=== PATIENT | female | born 1955 | race Two or more races ===

== ENCOUNTER 2018-06-03 08:46 | Inpatient (IN) | payer MEDICAID ==
[~2018-06-03] VITALS: Ht 160 cm; Wt 91.2 kg
--- NOTE | 2018-06-03 08:49 | NUR ---
SVETLANA WELSHS DT UNWITNESSED FALL. PER REPORT PATIENT WAS FOUND ON THE FLOOR. PATIENT IS AWAKE, APPEARS NOT IN DISTRESS. PATIENT NOTED WITH LEFT ELBOW ABRASION. SKIN IS WARM TO TOUCH AND NON DIAPHORETIC. PATIENT IS AFEBRILE.VSS
--- NOTE | 2018-06-03 08:56 | NUR ---
PATIENT IS AAO3.FARCI SPEAKING.
[2018-06-03 09:43] LABS: BASOPHILS # (AUTO) 0.3 /CMM (0.0-0.2); BASOPHILS % (AUTO) 1.5 % (0.0-2.0); EOSINOPHILS % (AUTO) 1.4 % (0.0-6.0); HEMATOCRIT 36 % (33-45); HEMOGLOBIN 11.8 g/dL (11.5-14.8); LYMPHOCYTES # (AUTO) 2.7 /CMM (0.8-4.8); MEAN CORPUSCULAR HEMOGLOBIN 29 PG (26.0-33.0); MEAN CORPUSCULAR HGB CONC 33 g/dl (31.0-36.0); MEAN CORPUSCULAR VOLUME 88 fL (82-100); MONOCYTES # (AUTO) 0.5 /CMM (0.1-1.30); NEUTROPHILS # (AUTO) 14.5 /CMM (1.8-8.9); NEUTROPHILS % (AUTO) 79.1 % (43.0-81.0); PLATELET COUNT (AUTO) 429 /CMM (150-450); RDW COEFFICIENT OF VARIATION 13.5 (11.5-15.0); WHITE BLOOD COUNT (AUTO) 18.3 K/uL (4.3-11.0)
--- NOTE | 2018-06-03 09:44 | NUR ---
[facility] [id number]
[2018-06-03 09:47] LABS: CALCIUM, SERUM 9.2 mg/dL (8.5-10.1); CARBON DIOXIDE 29 mmol/L (21-32); CHLORIDE 102 mmol/L (98-107); CREATININE 0.8 mg/dL (0.6-1.3); GLUCOSE 256 mg/dL (74-106); POTASSIUM 4.9 mmol/L (3.5-5.1); SODIUM SERUM 141 mmol/L (136-145); UREA NITROGEN, BLOOD 16 mg/dL (7-18)
[2018-06-03 09:49] LABS: ALANINE AMINOTRANSFERASE 30 U/L (12-78); ALKALINE PHOSPHATASE 124 U/L (46-116); ASPARTATE AMINOTRANSFERASE 26 U/L (15-37); BILIRUBIN,TOTAL 0.3 mg/dL (0.2-1.0); INR 0.94 (0.87-1.13); TOTAL PROTEIN, SERUM 7.7 g/dL (6.4-8.2)
[2018-06-03 09:53] LABS: TROPONIN I < 0.017 ng/mL (0.00-0.056)
[2018-06-03 10:23] LABS: APPEARANCE,URINE SL CLOUDY (CLEAR); BILIRUBIN,URINE NEGATIVE (NEGATIVE); BLOOD, URINE TRACE Ery/uL (NEGATIVE); COLOR,URINE YELLOW (YELLOW); KETONES,URINE NEGATIVE (NEGATIVE); LEUKOCYTE ESTERASE ,URINE 2+ (NEGATIVE); NITRITE, URINE NEGATIVE (NEGATIVE); PH,URINE 5.5 (5.0-8.0); PROTEIN,URINE NEGATIVE (NEGATIVE); UGLUCOSE NEGATIVE (NEGATIVE); UROBILINOGEN,URINE 0.2 EU/dL (0.2)
[2018-06-03 10:30] LABS: BACTERIA,URINE Moderate /HPF (None Seen); RBC,URINE NONE SEEN /HPF (0-2); SQUAMOUS EPITHELIAL CELL,UR Many /HPF (None Seen); WBC,URINE TOO NUMEROUS TO COUN /HPF (0-3); YEAST,URINE Moderate /HPF (None Seen)
[2018-06-03] MEDS ORDERED: LEVOFLOXACIN 750 MG /D5W 150ML PIGGYBACK IV ONE (10:30)
[2018-06-03] MEDS ORDERED: GENTAMICIN 80 MG/2 ML VIAL IM ONE (10:30)
[2018-06-03 10:34] LABS: BAND % (MANUAL) 3 % (0.0-5.0); BASOPHILS % (MANUAL) 0 % (0.0-2.0); EOSINOPHILS % (MANUAL) 1 % (0-4); LYMPHOCYTES % (MANUAL) 21 % (16-48); MONOCYTES % (MANUAL) 1 % (0-11.0); NEUTROPHILS % (MANUAL) 74 (42-76)
[2018-06-03] MEDS ORDERED: GENTAMICIN 80 MG/2 ML VIAL ONE (10:40)
[2018-06-03] MEDS ORDERED: LEVOFLOXACIN 750 MG /D5W 150ML 150 ML IV ONE (10:40)
--- NOTE | 2018-06-03 10:56 | NUR ---
CALLED MATEO ITS DR. SÁNCHEZ
--- NOTE | 2018-06-03 11:54 | NUR ---
MS AEROTRIANGULATION SPECIALIST NOTES RECEIVED PT FROM ER NURSE IN STABLE CONDITION. PT IS A/O X2 AND CONFUSED. NO SOB OR ACUTE SIGNS OF DISTRESS NOTED. BREATHING IS EVEN AND UNLABORED. PT ON RA AND SATING WELL. ADMITTING VITALS STABLE. IV TO RIGHT RA NOTED TO BE PATENT AND INTACT, NO REDNESS OR SIGNS OF INFILTRATION NOTED. PT COMPLETING LEVAQUIN INFUSION STARTED IN ER. ADMITTING ORDERS NOTED BY MD. SKIN ASSESSMENT COMPLETED AND ADMISSION PHOTOS PLACED IN PT'S CHART. NO PT' BELONGINGS NOTED AT THIS TIME. PT ORIENTED TO ROOM AND USE OF CALL LIGHT. BED IN LOW, LOCKED POSITION, SIDE RAILS UP X3, CALL LIGHT WITHIN REACH, BED ALARM ON. WILL CONTINUE TO MONITOR
[2018-06-03 12:00] VITALS: BP 138/81
[2018-06-03] MEDS ORDERED: MAG HYDROX/AL HYDROX/SIMETH 30 ML UDC PO PRN (12:00)
[2018-06-03] MEDS ORDERED: ZOLPIDEM TARTRATE 5 MG TABLET PO PRN (12:00)
[2018-06-03] MEDS ORDERED: ONDANSETRON HCL/PF 4 MG/2 ML VIAL IVP PRN (12:00)
[2018-06-03] MEDS ORDERED: HYDROCODONE/APAP 10/325MG 1 EA TABLET PO PRN (12:00)
[2018-06-03] MEDS ORDERED: Z GUARD REMEDY 2 OZ OINT TP PRN (12:00)
[2018-06-03] MEDS ORDERED: ACETAMINOPHEN 325 MG TABLET PO PRN (12:00)
[2018-06-03] MEDS ORDERED: MAGNESIUM HYDROXIDE 30 ML UDC PO PRN (12:00)
[2018-06-03] MEDS: ENOXAPARIN SODIUM 40 MG/0.4 ML DISP.SYRIN SQ SCH (12:41)
[2018-06-03] MEDS: IV NS 0.9% 1,000 ML IV PRN (12:44)
[2018-06-03 13:21] VITALS: BP 138/81
[2018-06-03] MEDS: HYDROCODONE/APAP 5/325MG 1 EACH TABLET PO PRN (13:24)
--- NOTE | 2018-06-03 14:00 | NUR ---
MSRN. PT AGITATED, CONFUSED AND CONTINUOUSLY CALLING FOR DTR. MD REQUESTING PRN HALDOL 2MG, PO, Q6HR. ORDERS PLACED.
[2018-06-03] MEDS: HALOPERIDOL 1 MG TABLET PO PRN (15:15)
[2018-06-03] MEDS: CEFTRIAXONE 1 G in IV D5W 50 ML IV SCH (15:58)
[2018-06-03 16:00] VITALS: BP 128/65
--- NOTE | 2018-06-03 16:43 | NUR ---
ABIGAIL. PT SON WILL PROVIDE UP TO DATE MED LIST IN AM.
--- NOTE | 2018-06-03 19:51 | NUR ---
MSRN. PT RESTING COMFORTABLY, TOLERATING ROOM AIR WITHOUT DISTRESS. PT WITHOUT S/S OF PAIN. PT WITH IVC INTACT AND OPERATIONAL WITH IVF PER RX. NO STOOL SUITABLE FOR CULTURE AND PT WITHOUT MED RECON COMPLETED, ENDORSED TO NIGHT NURSE COMPLETE. ENDORSED TO NIGHT NURSE FOR FAVIAN AT BEDSIDE.
--- NOTE | 2018-06-03 20:00 | NUR ---
MS2/RN RECEIVE PATIENT SLEEPING, APPEAR COMFORTABLE, BREATHING EVEN AND UNLABORED, IVF INFUSING, CALL LIGHT IN REACH. WILL MONITOR.
[2018-06-03] MEDS ORDERED: CALC-1029 PO (20:33)
[2018-06-03] MEDS ORDERED: SIMV40TA5 PO (20:33)
[2018-06-03] MEDS ORDERED: ACET-2605 PO (20:33)
[2018-06-03] MEDS ORDERED: METF-442 PO (20:33)
[2018-06-03] MEDS ORDERED: TRAZ-182 PO (20:33)
[2018-06-03] MEDS ORDERED: CLON0.5T PO (20:33)
[2018-06-03] MEDS ORDERED: ERGO500040 PO (20:33)
[2018-06-03] MEDS ORDERED: VANC500V PO (20:33)
[2018-06-03] MEDS ORDERED: SITA100T PO (20:33)
[2018-06-03] MEDS ORDERED: PIOG15TA8 PO (20:33)
[2018-06-03] MEDS ORDERED: CHLO25TA13 PO (20:33)
[2018-06-03] MEDS ORDERED: ASPI-605 PO (20:33)
[2018-06-03 20:38] VITALS: BP 121/60
[2018-06-04] MEDS: IV NS 0.9% 1,000 ML IV PRN ×2 (03:13→22:37)
[2018-06-04 05:22] VITALS: BP 132/80
--- NOTE | 2018-06-04 06:43 | NUR ---
MS2/RN PATIENT WAS AWAKE, MORNING CARE WAS DONE, TOTAL LINEN CARE DONE, REPOSITIONED TO COMFORT. PATIENT SLEPT GOOD THE WHOLE SHIFT. ALL NEEDS ATTENDED AT THIS TIME. WILL CONTINUE TO MONITOR.
--- NOTE | 2018-06-04 07:30 | NUR ---
MS RN NOTES PATIENT RECEIVED RESTING INSIDE ROOM. SLEEPING, EASILY AROUSABLE THROUGH VERBAL AND TACTILE STIMULI. BREATHING EVEN AND UNLABORED. NO SOB OR ACUTE DISTRESS AT THIS TIME. PATIENT DENIES ANY PAIN OR DISCOMFORT. IV INTACT AND PATENT, NO SWELLING OR BLEEDING ON SITE. MAINTAINED ISOLATION PRECAUTIONS. WILL CONTINUE TO MONITOR
[2018-06-04 08:00] VITALS: BP 117/66
[2018-06-04 08:04] LABS: THYROID STIMULATING HORMONE 0.893 uIU/mL (0.358-3.74)
[2018-06-04 08:06] LABS: BASOPHILS % (AUTO) 0.1 % (0.0-2.0); EOSINOPHILS % (AUTO) 2.5 % (0.0-6.0); HEMATOCRIT 34 % (33-45); HEMOGLOBIN 11.3 g/dL (11.5-14.8); LYMPHOCYTES # (AUTO) 2.9 /CMM (0.8-4.8); LYMPHOCYTES % (AUTO) 17.3 % (20.0-44.0); MEAN CORPUSCULAR HEMOGLOBIN 29 PG (26.0-33.0); MEAN CORPUSCULAR HGB CONC 33 g/dl (31.0-36.0); MEAN CORPUSCULAR VOLUME 87 fL (82-100); MONOCYTES # (AUTO) 0.7 /CMM (0.1-1.30); NEUTROPHILS # (AUTO) 12.7 /CMM (1.8-8.9); NEUTROPHILS % (AUTO) 76.1 % (43.0-81.0); PLATELET COUNT (AUTO) 389 /CMM (150-450); RDW COEFFICIENT OF VARIATION 13.1 (11.5-15.0); RED BLOOD CELL COUNT(AUTO) 3.93 MIL/uL (4.0-5.2); WHITE BLOOD COUNT (AUTO) 16.7 K/uL (4.3-11.0)
[2018-06-04 08:13] LABS: CALCIUM, SERUM 8.4 mg/dL (8.5-10.1); CREATININE 0.6 mg/dL (0.6-1.3); MAGNESIUM 1.6 mg/dL (1.8-2.4); PHOSPHORUS 2.9 mg/dL (2.5-4.9); POTASSIUM 4.2 mmol/L (3.5-5.1)
[2018-06-04] MEDS: ASPIRIN EC 81 MG TABLET.DR PO SCH (09:34)
[2018-06-04] MEDS: ENOXAPARIN SODIUM 40 MG/0.4 ML DISP.SYRIN SQ SCH (09:34)
[2018-06-04] MEDS: PIOGLITAZONE HCL 15 MG TABLET PO SCH (09:35)
[2018-06-04] MEDS: HYDROCODONE/APAP 5/325MG 1 EACH TABLET PO PRN ×2 (09:35→19:34)
[2018-06-04] MEDS: LINAGLIPTIN 5 MG TABLET PO SCH (09:35)
[2018-06-04] MEDS: chlorproMAZINE HCL 25 MG TABLET PO SCH ×3 (09:35→17:29)
[2018-06-04] MEDS: clonazePAM 0.5 MG TABLET PO SCH ×3 (09:35→17:29)
[2018-06-04] MEDS: CALCIUM CARB 600MG /VIT D 1 EACH TABLET PO SCH (09:35)
--- NOTE | 2018-06-04 10:00 | NUR ---
MS RN NOTES PATIENT SEEN AND EXAMINED BY DR. MOSS, PER DR. MOSS, IF PATIENT WITH BM AND IF STOOL IS FORMED, MAY DC ISOLATION PRECAUTIONS. TO CONTINUE PO VANCOMYCIN FOR TOTAL OF 14 DAYS. TO VERIFY WITH PRIOR FACILITY VANCOMYCIN START DATE. WILL CONTINUE TO MONITOR
[2018-06-04] MEDS: VANCOMYCIN HCL 125 MG/2.5 ML ORAL.SUSP PO SCH ×3 (12:16→23:43)
[2018-06-04] MEDS: HALOPERIDOL 1 MG TABLET PO PRN (12:50)
--- NOTE | 2018-06-04 14:04 | NUR ---
Social service consult requested by KATE Reddy regarding pt. having several hospitalizations in the past three months. Pt. is alert but not able to provide information due to language barrier. STEVE contacted pt's daughter Lilli . Lilli informed STEVE that pt. is living with her dad and brother and has been in and out of the hospitals and rehabs within the past three months. Lilli informed STEVE that pt. goes to rehab, has a fall, is confused and paranoid stating, "they are stealing from me." STEVE informed Lilli she will speak to the doctor regarding getting pt. a psych. consult. Lilli insisted that pt. get one as soon as possible. Lilli stated pt. has not walked since her surgery which was three months ago. STEVE updated KATE Reddy regarding aforementioned information. No other social service needs are requested at this time. STEVE is available, if needed.
[2018-06-04] MEDS: CEFTRIAXONE 1 G in IV D5W 50 ML IV SCH (15:25)
[2018-06-04 16:00] VITALS: BP 129/64
[2018-06-04] MEDS ORDERED: Magnesium 1GM/D5W 100ML PREMIX PIGGYBACK IV ONE (17:00)
[2018-06-04] MEDS: Magnesium 1GM/D5W 100ML PREMIX 100 ML IV SCH ×2 (17:29→18:31)
[2018-06-04] MEDS: METFORMIN 500 MG TABLET PO SCH (17:29)
--- NOTE | 2018-06-04 19:15 | NUR ---
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
--- NOTE | 2018-06-04 19:27 | NUR ---
MS RN NOTES PATIENT RESTING INSIDE ROOM. AWAKE, ALERT AND ORIENTED TO SELF. VERBALLY RESPONSIVE AND RESPONDS TO VERBAL AND TACTILE STIMULI. BREATHING EVEN AND UNLABORED. NO SOB OR ACUTE DISTRESS AT THIS TIME. NO CHANGES IN LOC NOTED. ISOLATION PRECAUTION IN PLACE. FAMILY AT BEDSIDE. ENDORSED TO INCOMING SHIFT FOR FAVIAN. BED LOCKED AND IN LOW POSITION. BILATERAL UPPER SIDE RAILS UP AND LOCKED. CALL LIGHT WITHIN EASY REACH
--- NOTE | 2018-06-04 19:30 | NUR ---
MS RN NOTES NEW SALINE LOCK #20 PLACE ON LEFT WRIST,SAME IVF RESTARTED.
--- NOTE | 2018-06-04 19:34 | NUR ---
MS RN NOTES PAIN MANAGEMENT C/O PAIN ON RIGHT ARM,MEDICATED WITH NORCO 5/325MG,1 TAB PO ORDERED FOR MODERATE PAIN
[2018-06-04 20:00] VITALS: BP 123/68
[2018-06-04] MEDS: TRAZODONE 50 MG TABLET PO SCH (21:11)
[2018-06-04] MEDS: MUPIROCIN OINT 2% 22 GM TUBE SCH (21:11)
[2018-06-04] MEDS: SIMVASTATIN 40 MG TABLET PO SCH (21:11)
--- NOTE | 2018-06-04 21:11 | NUR ---
MS RN NOTES STARTED ON BACTROBAN OINTMENT TO BILATERAL NARES FOR MRSA NARES.DUE 2200 PO MEDS GIVEN EARLY PER PATIENT REQUEST.
--- NOTE | 2018-06-05 04:00 | NUR ---
MS RN NOTES PER PHILL BRYANT,DIAPER WAS DRY,NO URINE NOR LOOSE STOOL.OFFERED BEDPAN BUT REFUSED.BLADDER NON DISTENDED.
[2018-06-05] MEDS: VANCOMYCIN HCL 125 MG/2.5 ML ORAL.SUSP PO SCH ×4 (05:32→23:50)
--- NOTE | 2018-06-05 06:30 | NUR ---
MS RN NOTES BLADDER SCAN DONE AND IT SHOWS 810 OF URINE IN THE BLADDER.PER PATIENT,NO URGE TO PEE AT THE MOMENT
--- NOTE | 2018-06-05 07:00 | NUR ---
MS RN NOTES A/O X1,MORNING CARE RENDERED TOLERATED WELL.NO URINE ON PHOTOGRAPHIC EQUIPMENT TECHNICIAN.REPORT GIVEN TO VICTORINA FOR FAVIAN.
[2018-06-05 07:30] LABS: CALCIUM, SERUM 8.4 mg/dL (8.5-10.1); CREATININE 0.6 mg/dL (0.6-1.3); MAGNESIUM 2.1 mg/dL (1.8-2.4); POTASSIUM 3.7 mmol/L (3.5-5.1)
--- NOTE | 2018-06-05 07:47 | NUR ---
MS RN NOTES PATIENT RECEIVED RESTING INSIDE ROOM. AWAKE, ALERT AND ORIENTED TO SELF. VERBALLY RESPONSIVE AND RESPONDS TO VERBAL AND TACTILE STIMULI. PATIENT BREATHING EVEN AND UNLABORED. NO SOB OR ACUTE DISTRESS AT THIS TIME. NO CHANGES IN LOC NOTED. IV INTACT AND PATENT. MAINTAINED ISOLATION PRECAUTIONS. SAFETY PRECAUTIONS IN PLACE. BED LOW AND IN LOCKED POSITION. BED ALARM ON. WILL CONTINUE TO MONITOR. CALL LIGHT WITHIN EASY REACH.
[2018-06-05 08:00] VITALS: BP 139/71
[2018-06-05] MEDS: ASPIRIN EC 81 MG TABLET.DR PO SCH (08:00)
[2018-06-05] MEDS: PIOGLITAZONE HCL 15 MG TABLET PO SCH (08:00)
[2018-06-05] MEDS: CALCIUM CARB 600MG /VIT D 1 EACH TABLET PO SCH (08:00)
[2018-06-05] MEDS: clonazePAM 0.5 MG TABLET PO SCH ×3 (08:00→17:32)
[2018-06-05] MEDS: METFORMIN 500 MG TABLET PO SCH ×2 (08:00→17:32)
[2018-06-05] MEDS: chlorproMAZINE HCL 25 MG TABLET PO SCH ×2 (08:00→12:45)
[2018-06-05] MEDS: LINAGLIPTIN 5 MG TABLET PO SCH (08:00)
[2018-06-05] MEDS: MUPIROCIN OINT 2% 22 GM TUBE SCH ×2 (08:01→21:39)
[2018-06-05] MEDS: ENOXAPARIN SODIUM 40 MG/0.4 ML DISP.SYRIN SQ SCH (08:01)
[2018-06-05] MEDS ORDERED: DEXTROSE 50%-WATER 50 ML DISP.SYRIN IV PRN (09:30)
[2018-06-05] MEDS ORDERED: *INSULIN REGULAR(HUMULIN R)HUM 100 UNIT/ML VIAL SQ PRN (09:30)
[2018-06-05] MEDS: BLOOD SUGAR DIAGNOSTIC 1 EACH STRIP VI SCH ×4 (09:54→21:43)
[2018-06-05] MEDS: INSULIN REGULAR, HUMAN 100 UNIT/ML 3 ML VIAL SQ PRN ×3 (10:01→17:32)
[2018-06-05] MEDS: LEVOFLOXACIN 500 MG /D5W 100ML 500 MG in PREMIX 1 EA IV SCH (10:02)
[2018-06-05] MEDS: HALOPERIDOL 1 MG TABLET PO PRN (12:45)
[2018-06-05] MEDS: IV NS 0.9% 1,000 ML IV PRN (14:54)
[2018-06-05] MEDS: CEFTRIAXONE 1 G in IV D5W 50 ML IV SCH (14:54)
[2018-06-05 16:00] VITALS: BP 124/66
--- NOTE | 2018-06-05 19:15 | NUR ---
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
--- NOTE | 2018-06-05 19:22 | NUR ---
MS RN NOTES PATIENT RESTING INSIDE ROOM. AWAKE, ALERT AND ORIENTED TO SELF. VERBALLY RESPONSIVE AND RESPONDS TO VERBAL AND TACTILE STIMULI. BREATHING EVEN AND UNLABORED. NO SOB OR ACUTE DISTRESS NOTED. NO CHANGES IN LOC NOTED. PATIENT DENIES ANY PAIN OR DISCOMFORT. IV INTACT AND PATENT. ALL NURSING NEEDS ATTENDED AND MET. ENDORSED TO INCOMING SHIFT FOR FAVIAN .BED LOCKED AND IN LOW POSITION. BILATERAL UPPER SIDE RAILS UP AND LOCKED. CALL LIGHT WITHIN EASY REACH
[2018-06-05] MEDS: HYDROCODONE/APAP 5/325MG 1 EACH TABLET PO PRN (19:58)
--- NOTE | 2018-06-05 19:58 | NUR ---
MS RN NOTES SCREAMS, 'PAIN', MEDICATED WITH NORCO 5/325MG,1 TAB PO ORDERED.
[2018-06-05 20:00] VITALS: BP 138/70
--- NOTE | 2018-06-05 21:30 | NUR ---
MS RN NOTES ACCU-CHECK BLOOD SUGAR CHECK 230 COVERED WITH HUMULIN R 4 UNITS PER SLIDING SCALE.
[2018-06-05] MEDS: SIMVASTATIN 40 MG TABLET PO SCH (21:38)
[2018-06-05] MEDS: TRAZODONE 50 MG TABLET PO SCH (21:38)
[2018-06-06] MEDS: IV NS 0.9% 1,000 ML IV PRN (04:51)
[2018-06-06] MEDS: VANCOMYCIN HCL 125 MG/2.5 ML ORAL.SUSP PO SCH ×3 (05:51→17:17)
--- NOTE | 2018-06-06 06:00 | NUR ---
MS RN NOTES ACCU-CHECK BLOOD SUGAR CHECK 195,COVERED WITH HUMULIN R 3 UNITS PER SLIDING SCALE.
[2018-06-06] MEDS: BLOOD SUGAR DIAGNOSTIC 1 EACH STRIP VI SCH ×3 (06:05→17:18)
[2018-06-06] MEDS: INSULIN REGULAR, HUMAN 100 UNIT/ML 3 ML VIAL SQ PRN ×3 (06:07→17:17)
[2018-06-06 06:16] LABS: BASOPHILS # (AUTO) 0.2 /CMM (0.0-0.2); BASOPHILS % (AUTO) 1.5 % (0.0-2.0); EOSINOPHILS % (AUTO) 2.3 % (0.0-6.0); HEMATOCRIT 35 % (33-45); HEMOGLOBIN 10.2 g/dL (11.5-14.8); LYMPHOCYTES # (AUTO) 3.7 /CMM (0.8-4.8); LYMPHOCYTES % (AUTO) 24.4 % (20.0-44.0); MEAN CORPUSCULAR HEMOGLOBIN 27 PG (26.0-33.0); MEAN CORPUSCULAR HGB CONC 30 g/dl (31.0-36.0); MEAN CORPUSCULAR VOLUME 91 fL (82-100); MONOCYTES # (AUTO) 0.2 /CMM (0.1-1.30); MONOCYTES % (AUTO) 1.5 % (2.0-12.0); NEUTROPHILS # (AUTO) 10.8 /CMM (1.8-8.9); NEUTROPHILS % (AUTO) 70.3 % (43.0-81.0); PLATELET COUNT (AUTO) 357 /CMM (150-450); RDW COEFFICIENT OF VARIATION 14.1 (11.5-15.0); RED BLOOD CELL COUNT(AUTO) 3.83 MIL/uL (4.0-5.2); WHITE BLOOD COUNT (AUTO) 15.3 K/uL (4.3-11.0)
[2018-06-06 06:29] LABS: CALCIUM, SERUM 8.2 mg/dL (8.5-10.1); CREATININE 0.6 mg/dL (0.6-1.3); POTASSIUM 3.6 mmol/L (3.5-5.1)
--- NOTE | 2018-06-06 06:47 | NUR ---
MS RN NOTES QUITE AFTER 10PM LAST NIGHT TRAZODONE EFFECTIVE.IVF INFUSING.MORNING CARE RENDERED BY FRED AND NURSE ASSIGNED.STOOL FOR C-DIFF WITH NEGATIVE RESULT.CALL LIGHT IN REACH,NEEDS ATTENDED.WILL ENDORSE TO [employer] FOR FAVIAN.
--- NOTE | 2018-06-06 07:25 | NUR ---
MS RN OPENING NOTES PATIENT RECEIVED AWAKE IN BED IN NO ACUTE SIGNS OF DISTRESS. A/O X1-2. FARSI SPEAKING, DENIES ANY PAIN OR DISCOMFORTS AT THIS TIME. ON ROOM AIR, BREATHING EVEN AND UNLABORED. IV ACCESS ON LEFT WRIST INTACT AND PATENT, IVF OF NS @ 75ML/HR INFUSING, NO S/S OF INFILTRATIONS NOTED. SAFETY MEASURES IN PLACE. BED LOCKED AND IN LOW POSITION. BILATERAL UPPER SIDE RAILS UP AND LOCKED. CALL LIGHT WITHIN EASY REACH. WILL CONTINUE TO MONITOR PT.
[2018-06-06 08:00] VITALS: BP 125/64
[2018-06-06] MEDS: MUPIROCIN OINT 2% 22 GM TUBE SCH (08:26)
[2018-06-06] MEDS: PIOGLITAZONE HCL 15 MG TABLET PO SCH (08:27)
[2018-06-06] MEDS: METFORMIN 500 MG TABLET PO SCH ×2 (08:27→16:45)
[2018-06-06] MEDS: clonazePAM 0.5 MG TABLET PO SCH ×3 (08:27→16:45)
[2018-06-06] MEDS: ASPIRIN EC 81 MG TABLET.DR PO SCH (08:27)
[2018-06-06] MEDS: CALCIUM CARB 600MG /VIT D 1 EACH TABLET PO SCH (08:27)
[2018-06-06] MEDS: LINAGLIPTIN 5 MG TABLET PO SCH (08:27)
[2018-06-06] MEDS: ENOXAPARIN SODIUM 40 MG/0.4 ML DISP.SYRIN SQ SCH (08:29)
[2018-06-06] MEDS ORDERED: LEVO750T46 PO (08:58)
[2018-06-06] MEDS: LEVOFLOXACIN 500 MG /D5W 100ML 500 MG in PREMIX 1 EA IV SCH (09:47)
--- NOTE | 2018-06-06 10:02 | NUR ---
RN NOTES DR MCCALLUM CAME TO UNIT WITH ORDER TO DO ORTHO CONSULT FOR PATIENT BEFORE DISCHARGING. DR PENA INFORMED AND SAID THAT HE WILL COME LATER TO SEE PATIENT. WILL FOLLOW-UP
--- NOTE | 2018-06-06 15:55 | NUR ---
RN NOTES PATIENT SEEN AND EVALUATED BY DR PENA WITH NO SURGICAL INTERVENTION INDICATED AT THIS TIME AND HE CLEARED PATIENT FOR DISCHARGE. INVESTOR RELATIONS ASSOCIATE INFORMED ME THAT PT WILL BE DISCHARGED TO [facility]. CALLED AND INFORMED DR MCCALLUM AND IN AGREEMENT.
--- NOTE | 2018-06-06 15:57 | NUR ---
RN NOTES PATIENT FOR DISCHARGED THIS AFTERNOON. CALLED AND REPORT GIVEN TO NURSE RIM FIRE PRIMING TOOL SETTER CHIO OF [facility]. PT'S DAUGHTER LEIGHTON ALLRED CALLED AND INFORMED OF PT'S TRANSFER THIS AFTERNOON.
[2018-06-06] MEDS: HYDROCODONE/APAP 5/325MG 1 EACH TABLET PO PRN (17:38)
--- NOTE | 2018-06-06 18:02 | NUR ---
RN DISCHARGED NOTES PATIENT DISCHARGED TO [facility] IN STABLE CONDITION. ALERT AND ORIENTED X2. ABLE TO VERBALIZED NEEDS IN FARSI. PATIENT SPOKE TO DAUGHTER ON THE PHONE WHILE EMT'S WERE HERE AND DAUGHTER EXPLAINED THAT PT WILL GO TO [facility]. V/S TAKEN AND RECORDED. SKIN IS INTACT. IV ACCESS ON LEFT WRIST REMOVED WITH NO BLEEDING NOTED. HEALTH TEACHINGS GIVEN TO PT BUT UN-ABLE TO FULLY COMPREHEND DUE TO LANGUAGE BARRIER. PT LEFT UNIT VIA GURNEY @ 1800 IN NO ACUTE SIGNS OF DISTRESS ACCOMPANIED BY 2 [facility] NURSE AIRBRUSH ARTIST MADE AWARE OF DISCHARGE.
[2018-06-07] MEDS ORDERED: ERGOCALCIFEROL (VITAMIN D 2) 50,000 UNIT CAPSULE PO SCH (09:00)
== END 2018-06-06 18:00 | DRG 720 ==
LOC: ER 08:47 → MEDSG2 12:09
PROVIDERS: ADMIT Internal Medicine; ATTEND Internal Medicine
DX: A41.9 Sepsis, unspecified organism (principal); E11.9 Type 2 diabetes mellitus without complications; N39.0 Urinary tract infection, site not specified; E66.9 Obesity, unspecified; E78.5 Hyperlipidemia, unspecified; F41.9 Anxiety disorder, unspecified; Z88.0 Allergy status to penicillin; S83.012A Lateral subluxation of left patella, initial encounter; W18.30XA Fall on same level, unspecified, initial encounter; Y92.89 Other specified places as the place of occurrence of the external cause; S83.011A Lateral subluxation of right patella, initial encounter; Z68.35 Body mass index [BMI] 35.0-35.9, adult; Z22.322 Carrier or suspected carrier of Methicillin resistant Staphylococcus aureus; B95.5 Unspecified streptococcus as the cause of diseases classified elsewhere
CPT/HCPCS: 36415; 70450-TC; 71045-TC; 72170-TC; 73564-TC; 80048-TC; 80061-TC; 80076-TC; 81000-TC; 82962-TC; 83605-TC; 83735-TC; 84100-TC; 84443-TC; 84484-TC; 85025-TC; 85730-TC; 87040-TC; 87081-TC; 87086-TC; 87186-TC; 97110-TC; 97116-TC; 97530-TC; A4216; A4606; J0696; J1580; J1650; J1815; J1956; J3475; J7030; J7060; Q0161; Z7610